=== PATIENT | male | born 1985 | race Caucasian/White ===

== ENCOUNTER 2020-11-21 11:35 | Emergency (ER) | payer OTHER ==
[2020-11-21 11:48] VITALS: BP 135/87; PULSE 75; TEMP 98.5; BMI 38.0
[2020-11-21] MEDS ORDERED: NAPROXEN 500 MG TABLET PO ONE (11:55)
[2020-11-21] MEDS ORDERED: CYCLOBENZAPRINE HCL 10 MG TABLET (FP) PO ONE (11:55)
[2020-11-21] MEDS ORDERED: NAPROXEN 500 MG TABLET ONE (11:58)
[2020-11-21] MEDS ORDERED: CYCLOBENZAPRINE HCL 10 MG TABLET (FP) ONE (11:58)
[2020-11-21] MEDS ORDERED: oxyCODONE HCL 5 MG TABLET PO ONE (13:53)
[2020-11-21] MEDS ORDERED: oxyCODONE HCL 5 MG TABLET ONE (13:57)
== END 2020-11-21 14:50 | disposition home or self-care (01) ==
LOC: FER 11:35
DX: M54.5 Low back pain (principal)
CPT/HCPCS: 72131-TC; 99284-25